=== PATIENT | female | born 1995 | race Two or more races ===

== ENCOUNTER 2021-05-24 09:24 | Outpatient (REF) | payer OTHER, SELFPAY ==
[2021-05-24 12:11] LABS: Thyroid Stimulating Hormone 0.46 uIU/mL (0.32-4.0)
[2021-05-24 12:18] LABS: HBc Num1 0.16 S/CO (0.00-0.79); HIV AB/AG Nonreactive (Nonreactive); HIV Num 1 0.06 S/CO (0.00-0.99); Hepatitis B Core Antibody Nonreactive (Nonreactive)
[2021-05-24 12:21] LABS: Syphilis Screen Nonreactive (Nonreactive)
[2021-05-24 12:24] LABS: ~HepC Num1 0.08 S/CO (0.00-0.79); ~Hepatitis C Antibody Nonreactive (Nonreactive)
[2021-05-24 14:31] LABS: CT PCR NOT DETECTED (Not Detect.); NG PCR NOT DETECTED (Not Detect.)
[2021-05-25 09:42] LABS: BV Int Neg Control Negative (Negative); BV Int Pos Control Positive (Positive)
[2021-05-26 17:47] LABS: DHEA Sulfate 261 mcg/dL (18-391)
[2021-05-26 20:41] LABS: Prolactin 5.1 ng/mL
[2021-05-30 13:51] LABS: Testosterone, Free 2.9 pg/mL (0.1-6.4); Testosterone, Total 35 ng/dL (2-45)
== END 2021-05-24 09:25 | disposition home or self-care (01) ==
LOC: HO.LAB 09:24
PROVIDERS: Visit Provider Advanced Practice Midwife
DX: Z01.411 Encounter for gynecological examination (general) (routine) with abnormal findings (principal); Z11.3 Encounter for screening for infections with a predominantly sexual mode of transmission; Z11.4 Encounter for screening for human immunodeficiency virus [HIV]; L98.9 Disorder of the skin and subcutaneous tissue, unspecified; N92.6 Irregular menstruation, unspecified; L68.0 Hirsutism; Z20.2 Contact with and (suspected) exposure to infections with a predominantly sexual mode of transmission
CPT/HCPCS: 36415; 82627; 83498; 84146; 84402; 84403; 84443; 86704; 86780; 86803; 87389; 87480; 87491; 87510; 87591; 87660; 88142

== ENCOUNTER → 2021-06-05 12:03 | Outpatient (BNVA) | payer OTHER, SELFPAY | PROVIDERS: Visit Provider Advanced Practice Midwife ==